=== PATIENT | female | born 1995 | race African-American/Black ===

== ENCOUNTER 2019-05-17 10:17 | Emergency (ER) | payer SELFPAY ==
[~2019-05-17] VITALS: Ht 170.2 cm; Wt 101.2 kg
[2019-05-17] MEDS ORDERED: FAMOTIDINE 20 MG/2 ML VIAL IV STA (11:02)
[2019-05-17] MEDS ORDERED: IOPAMIDOL 370 MG/ML 200 ML INFUS..BTL INJ ONE (11:37)
[2019-05-17] MEDS ORDERED: SODIUM CHLORIDE 0.9% 50ML 50 ML ONE (11:37)
[2019-05-17] MEDS ORDERED: BELLADONNA ALK/PHENOBARBITAL 5 ML UDC ONE (11:38)
[2019-05-17] MEDS ORDERED: MAGNESIUM/ALUMINUM/SIMETHICONE 30 ML UDC ONE (11:38)
[2019-05-17] MEDS ORDERED: LIDOCAINE VISC 2% SOLN 15 ML UDC ONE (11:38)
[2019-05-17] MEDS ORDERED: FAMOTIDINE 20 MG/2 ML VIAL IV ONE (11:39)
--- NOTE | 2019-05-17 12:17 | Diagnostic Imaging Report ---
CT of the abdomen and pelvis History: Abdominal pain Comparison: None available. Technique: Multidetector CT scanning of the abdomen and pelvis was performed from the level of the lung bases to the inferior pubic ramus with IV contrast DOSE REDUCTION: The examination was performed according to departmental dose-optimization program which includes automated exposure control, adjustment of the mA and/or kV according to patient size and/or use of iterative reconstruction technique. Discussion: The lung bases are clear. No focal hepatic lesions are identified. The gallbladder is present nondistended. No radiopaque gallstones. No intrahepatic or extrahepatic biliary dilatation. Spleen is within normal limits. The bilateral adrenal glands are unremarkable. The pancreas is homogeneous in attenuation. There is no pancreatic ductal dilatation. No peripancreatic inflammatory stranding is present. The kidneys are normal in size and enhance symmetrically. There is no hydroureteronephrosis. No kidney stones are identified. The stomach, small, and large bowel are nondistended. There is no evidence of obstruction. No bowel wall thickening is appreciated. The appendix is not identified. There is no free intraperitoneal air or ascites. The abdominal aorta is of normal course and caliber. The uterus is retroflexed. The bilateral adnexa are within normal limits. The urinary bladder is unremarkable. No enlarged abdominal or retroperitoneal lymph nodes are identified. No acute osseous abnormalities. IMPRESSION: No CT evidence of acute abdominal or pelvic pathology. Signed by: Derek Curran MD on 05/17/2019 12:13 PM
[2019-05-17] MEDS ORDERED: PEPCID20 MG PO (12:32)
[2019-05-17 12:44] VITALS: BP 117/65
[2019-05-17] MEDS ORDERED: DONNATAL/LIDOCAINE/MAALOX 30 ML SUSP PO SCH (15:00)
== END 2019-05-17 12:47 | disposition home or self-care (01) ==
LOC: FSED 10:17
DX: R10.31 Right lower quadrant pain (principal); R10.13 Epigastric pain; R10.84 Generalized abdominal pain
CPT/HCPCS: 74177; 80053; 81003; 81025; 85025; 99283; Q9967